=== PATIENT | male | born 1985 | race Caucasian/White ===

== ENCOUNTER 2024-02-04 12:01 | Emergency (ER) | payer OTHER, SELFPAY ==
[2024-02-04 12:06] VITALS: BP 149/110
[2024-02-04 12:25] LABS: % Basophils 0.3 % (0-2); % Eosinophils 0.3 % (0-6); % Immature Granulocytes 0.6 % (0-0.5); % Lymphocytes 7.5 % (20.5-51.1); % Monocytes 11.9 % (1.7-9.3); % Neutrophils 79.4 % (42.2-75.2); Absolute Immature Granulocytes 0.1 10^3/uL (0-0.05); Absolute Lymphocytes 0.9 10^3/uL (1.2-3.4); Absolute Monocytes 1.4 10^3/uL (0.1-0.6); Absolute Neutrophils 9.3 10^3/uL (1.4-6.5); Hematocrit 38.9 % (39.0-52.0); Hemoglobin 13.9 g/dL (13.0-18.0); Mean Corp Hgb Conc. 35.7 g/dL (33.0-37.0); Mean Corpuscular Hgb 35.2 pg (27.0-31.0); Mean Corpuscular Volume 98.5 fL (80.0-94.0); Mean Platelet Volume 8.9 fL (7.4-10.4); Nucleated Red Blood Cells % 0 % (-); Platelet Count 296 10^3/uL (130-400); Red Blood Cell Count 3.95 10^6/uL (4.70-6.10); White Blood Cell Count 11.7 10^3/uL (4.8-10.8)
[2024-02-04 12:41] LABS: ALT (SGPT) 31 U/L (0-50); AST (SGOT) 33 U/L (17-59); Albumin 4.4 g/dl (3.5-5.0); Alkaline Phosphatase 84 U/L (38-126); Blood Urea Nitrogen 11 mg/dl (9-20); Calcium 9.9 mg/dl (8.4-10.2); Carbon Dioxide 22 mmol/L (22-30); Chloride 98 mmol/L (98-107); Glucose 104 mg/dl (70-99); Potassium 3.8 mmol/L (3.5-5.1); Sodium 134 mmol/L (135-145); Total Bilirubin 0.8 mg/dl (0.2-1.3); Total Protein 7.3 g/dl (6.3-8.2); eGFR > 60.00
--- NOTE | 2024-02-04 12:55 | ED.GENMED ---
History of Present Illness
General
Chief Complaint: Throat Problem
Source: patient
Exam Limitations: none
Time Seen by Provider: 02/04/24 12:45
Travel History
Have you had any contact with someone who has COVID-19?: No
Do you have any symptoms of coronavirus? Fever > 100 degrees, chills, cough, shortness of breath, sore throat, loss of taste or smell, muscle aches, or headache?: No
History of Present Illness
History of Present Illness:
See MDM
Past History
Past History
ED Past Medical History: HTN and Hypercholesterolemia
ED Past Surgical History: Appendectomy
Social History
Tobacco: Non-smoker
Alcohol: None
Phy Exam
Physical Exam
Physical Exam:
See MDM
Course
Orders/Labs/Results
Orders:
Orders
02/04/24 12:13
CMP [Comprehensive Metabolic Panel] Urgent
Complete Blood Count/With Diff Urgent
02/04/24 12:50
CT Neck With Iv Contrast Urgent
Comment:
Reason For Exam: R peritonsilar swelling
Dexamethasone Sod Phosphate [Decadron] 10 mg IV NOW STA
Ketorolac [Toradol] 30 mg IV NOW STA
Piperacillin/Tazo 3.375 Gram [Zosyn] 3.375 gram in 50 ml IV NOW
02/04/24 13:42
Consult ENT [ENT CONSULT] Urgent
Consulting Provider: Robert Harding
Was physician already notified: Yes
Abnormal Lab Results
02/04/24
12:13
WBC 11.7 H 10^3/uL
(4.8-10.8)
RBC 3.95 L 10^6/uL
(4.70-6.10)
Hct 38.9 L %
(39.0-52.0)
MCV 98.5 H fL
(80.0-94.0)
MCH 35.2 H pg
(27.0-31.0)
Abs Immat Gran (auto) 0.1 H 10^3/uL
(0-0.05)
Absolute Neuts (auto) 9.3 H 10^3/uL
(1.4-6.5)
Absolute Lymphs (auto) 0.9 L 10^3/uL
(1.2-3.4)
Absolute Monos (auto) 1.4 H 10^3/uL
(0.1-0.6)
Immature Gran % 0.6 H %
(0-0.5)
Neutrophils % 79.4 H %
(42.2-75.2)
Lymphocytes % 7.5 L %
(20.5-51.1)
Monocytes % 11.9 H %
(1.7-9.3)
Sodium 134 L mmol/L
(135-145)
Glucose 104 H mg/dl
(70-99)
02/04/24 12:13
02/04/24 12:13
Vital Signs
Initial and Last Documented VS:
Initial Vital Signs
Temp Pulse Resp BP Pulse Ox
98.1 F 124 18 149/110 96
02/04/24 12:02/04/24 12:02/04/24 12:02/04/24 12:06 02/04/24 12:06
Last Documented Vital Signs
Temp Pulse Resp BP Pulse Ox
98.1 F 124 18 149/110 96
02/04/24 12:02/04/24 12:02/04/24 12:02/04/24 12:06 02/04/24 12:06
MDM/Problems Addressed
Differential Diagnosis Includes:
HPI and MDM Narrative:
38-year-old male presenting with concern for peritonsillar abscess. He was seen at urgent care and sent to the emergency department. On exam, he does have significant swelling to his right peritonsillar spacing with uvula deviation to the left.
Patient states he has had a sore throat for couple days. It is painful to swallow but there is no trouble with swallowing.
Given the concern for peritonsillar abscess, will give dose of Decadron, Toradol and dose of Zosyn. Will obtain CT
Physical exam
General: Well appearing and non-toxic
HEENT: protecting airway. Posterior pharynx with swelling to the right with uvular deviation to the left
Neck: supple
CV: No evidence of cyanosis
Resp: No accessory muscle use
Abd: Non-distended
Extremities: No deformities
Neuro: alert
Psych: Normal affect
Skin: Intact
Problems Addressed including Acute and Chronic Conditions affecting care:
1. Peritonsillar abscess
Acuity: acute
Prognosis: unstable
Details: Patient given Decadron, Toradol and dose of Zosyn. Will obtain CT
2. [ ]
Acuity: acute
Prognosis: stable
Details:
3. [ ]
Acuity: acute
Prognosis: stable
Details:
4. [ ]
Acuity: acute
Prognosis: stable
Details:
5. [ ]
Acuity:
Prognosis:
Details:
Updates
1:[address] concerning with MEDICAL PHYSICS PROFESSOR. At this point, ENT at bedside and evaluated the CT as well and will drain
Differential Diagnosis (but not limited to): Peritonsillar abscess, uvulitis
Testing considered: strep throat testing
Drug therapy (if applicable): OTC meds, please see d/c instruction regarding Rx drugs
Amount and/or Complexity of Data Reviewed
Clinical info obtained from: Patient
External data reviewed: N/A
Labs I independently reviewed (but not limited to): Leukocytosis
Radiology: N/A
Pulse Ox: not hypoxic
EKG independently reviewed: N/A
Health Coordinator: N/A
Critical Care: N/A
Risk of Complication:
Social Determinants of health: Good social support
Discussed with other providers: ENT
Escalation of Care includes Admit/Obs: After being observed in the Emergency Department, pt stable for discharge.
Occasional wrong word or 'sound a like' substitutions may have occurred due to the inherent limitations of voice recognition software. Read the chart carefully and recognize, using context, where substitutions have occurred.
*Critical Care Note
Total Time (30-74mins, 75-104mins- exclusive of procedures): Not Applicable
ED Attending Note
-
Portions of this chart may have been created with voice recognition software.� Occasional wrong word or��sound alike� substitutions may have occurred due to the inherent limitations of voice recognition software.
Discharge Plan
Departure
Patient Disposition: Home (Routine Discharge)
Date of Disposition: 02/04/24
Time of Disposition: 14:29
Patient with high blood pressure during this ER visit?: Yes
Discharge Problem:
Abscess, peritonsillar
Instructions: BLOOD PRESSURE
Prescriptions:
New
prednisone 20 mg tablet
40 mg PO DAILY Qty: 10 0RF
amoxicillin-pot clavulanate 875-125 mg tablet
1 tab PO BID Qty: 20 0RF
No Action
atorvastatin 40 mg Tablet
40 mg PO DAILY
amlodipine 5 mg Tablet
5 mg PO DAILY
gabapentin 300 mg Capsule
300 mg PO DAILYPRN PRN (Reason: neuropathy)
ibuprofen 600 mg Tablet
600 mg PO Q6HPRN PRN (Reason: mild pain)
losartan 100 mg Tablet
100 mg PO DAILY
sertraline 50 mg Tablet
50 mg PO DAILY
bupropion HCl 300 mg Tablet Extended Release 24 Hr
300 mg PO DAILY
Referrals:
Robert Harding MD [Active] -
Jocelin Park CRNP [Family Provider] -
Activity Restrictions/Additional Instructions:
Please return for any worsening symptoms.
You may return at any time if you have further concerns.
Please follow up with your doctor at the first available appointment, preferably this week.
Please follow-up with the ENT doctor.
Thank you for choosing [facility].
Interventions
Interventions:
*Risk Screen - Suicide Last Done: 02/04/24 13:47
*General Assessment Last Done: 02/04/24 12:06
*Neglect/Abuse Screening Last Done: 02/04/24 13:47
*ED COVID-19 Vaccine History Last Done: 02/04/24 12:06
ED-EENT Assessment Last Done: 02/04/24 13:45
Discharge Date and Time
Print Language: FRENCH
[2024-02-04] MEDS: DECADRON 10 MG IV (13:13)
[2024-02-04] MEDS: TORADOL 30 MG IV (13:14)
[2024-02-04] MEDS: ZOSYN 50 IV (13:14)
--- NOTE | 2024-02-04 13:54 | CON.MD ---
Consultation - Medical
-
Pt c 1 week Hx sore throat, on meds for this, presents to ER with worsening sore throat on right
Hx strep tonsillitis treated approx [address] scan show hypodensity around R tonsil, c/w peritonsillar abscess
PMH - HTN, depression, pt vapes
PE - Muffled voice
Mild trismus
R peritonsillar swelling
A/P R peritonsillar cellulitis / abscess
I & D performed after local anesthesia
Mostly blood more than purulence, pocket probed to ensure adequate drainage
Received IV Decadron and Zosyn in ER
Can d/c home on Augmentin 875 mg BID or Clindamycin 300 mg TID
Have pt follow up ENT office next week or return to ER if symptoms worsen
[2024-02-04 14:43] VITALS: BP 170/109
== END 2024-02-04 14:48 | disposition home or self-care (01) ==
LOC: EMR 12:01
PROVIDERS: CONSULT PHYSICIAN Otolaryngology; EMERGENCY PHYSICIAN Student in an Organized Health Care Education/Training Program; FAMILY PHYSICIAN Nurse Practitioner Family
DX: J36 Peritonsillar abscess (principal); E78.00 Pure hypercholesterolemia, unspecified; I10 Essential (primary) hypertension; Z90.49 Acquired absence of other specified parts of digestive tract
CPT/HCPCS: 99284; 96365; 96375; 70491; 80053; 85025; Q9967